=== PATIENT | male | born 1990 | race Caucasian/White ===

== ENCOUNTER → 2024-03-03 | Outpatient (CLI) | payer OTHER ==
[~2024-03-03] MED LIST: AMOCLA875 PO; AMPDEX30CR; BUPR150T2; Bactrim Ds Tab1 EACH PO; CEPH500 PO; CODACE30 PO; CRUTCH4 USE; FAMO20 PO; HYDACE5 PO; IBUP800 PO; NAPR500 PO; NORT10 PO; NORT25 PO; ONDA4 PO; OXYACE5T PO; PENVK500 PO; PERM5TC TOP; PROM25 PO; PSEU120ER PO; Percocet 5-3251 EACH PO; Prednisone20 MG PO; RXOXYACE PO; Vibramycin100 MG PO
== END | disposition home or self-care (01) ==
LOC: LAB SHORT 16:58
DX: R10.9 Unspecified abdominal pain (principal)
CPT/HCPCS: 87086